=== PATIENT | female | born 2000 | race Caucasian/White ===

== ENCOUNTER 2019-08-18 19:26 | Emergency (ER) | payer SELFPAY | END 2019-08-18 22:17 | disposition left against medical advice (07) | LOC: ER 19:26 | DX: Z53.1 Procedure and treatment not carried out because of patient's decision for reasons of belief and group pressure (principal) ==

== ENCOUNTER 2019-12-21 13:32 | Emergency (ER) | payer OTHER ==
--- NOTE | 2019-12-21 13:46 | ER Document Report ---
ED Medical Screen (RME) - General Chief Complaint: Abdominal Pain Stated Complaint: ABDOMINAL PAIN Time Seen by Provider: 12/21/19 13:39 Mode of Arrival: Ambulatory Information source: Patient Notes: 19-year-old female presents to ED for complaint of nausea vomiting headache and dizziness. She is a lethargic. She states her primary care doctor sent her here because she started getting almost fainting when she tried to take a shower. She is 3 para 2. She does have a history of bipolar PTSD hyperemesis preeclampsia and growth abnormality (IGUR). Patient is alert oriented respirations regular nonlabored speaking in full sentences. She does walk with a even steady gait. I have greeted and performed a rapid initial assessment of this patient. A comprehensive ED assessment and evaluation of the patient, analysis of test results and completion of medical decision making process will be conducted by an additional ED providers. Physical Exam - Vital signs Vitals: Temp Pulse Resp BP Pulse Ox 98.0 F 75 18 141/68 H 97 12/21/19 13:36 12/21/19 13:36 12/21/19 13:36 12/21/19 13:36 12/21/19 13:36 Course - Vital Signs Vital signs: Temp Pulse Resp BP Pulse Ox 98.0 F 75 18 141/68 H 97 12/21/19 13:36 12/21/19 13:36 12/21/19 13:36 12/21/19 13:36 12/21/19 13:36
[2019-12-21 14:24] LABS: ABSOLUTE EOSINOPHILS # (AUTO) 0.1 10^3/uL (0.0-0.6); ABSOLUTE LYMPHOCYTES (AUTO) 2.9 10^3/uL (0.5-4.7); ABSOLUTE MONOCYTES (AUTO) 0.6 10^3/uL (0.1-1.4); ABSOLUTE NEUT (AUTO) 6.1 10^3/uL (1.7-8.2); APPEARANCE,URINE TURBID; BASOPHILS % (AUTO) 0.4 % (0-2); BILIRUBIN,URINE NEGATIVE (NEGATIVE); COLOR,URINE YELLOW; EOSINOPHILS % (AUTO) 0.7 % (0-6); GLUCOSE, URINE 50 mg/dL (NEGATIVE); HEMATOCRIT 36.8 % (36.0-47.0); HEMOGLOBIN 13.3 g/dL (12.0-15.5); KETONES,URINE 20 mg/dL (NEGATIVE); LEUKOCYTE ESTERASE,URINE NEGATIVE (NEGATIVE); LYMPHOCYTES % (AUTO) 29.8 % (13-45); MEAN CORPUSCULAR HEMOGLOBIN 32.1 pg (27.0-33.4); MEAN CORPUSCULAR HGB CONC 36.1 g/dL (32.0-36.0); MEAN CORPUSCULAR VOLUME 89 fl (80-97); MONOCYTES % (AUTO) 5.8 % (3-13); NITRITE,URINE NEGATIVE (NEGATIVE); PLATELET COUNT 276 10^3/uL (150-450); PROTEIN,URINE NEGATIVE (NEGATIVE); RED BLOOD COUNT 4.13 10^6/uL (3.72-5.28); RED CELL DISTRIBUTION WIDTH 12.8 % (11.5-14.0); SEGMENTED NEUTROPHILS % (AUTO) 63.3 % (42-78); TOTAL CELLS COUNTED % (AUTO) 100 %; URINE SPECIFIC GRAVITY 1.018; UROBILINOGEN,URINE NEGATIVE mg/dL (<2.0); WHITE BLOOD COUNT 9.7 10^3/uL (4.0-10.5)
[2019-12-21 14:37] LABS: ALBUMIN 4.5 g/dL (3.5-5.0); ALKALINE PHOSPHATASE 51 U/L (38-126); ANION GAP 7 (5-19); ASPARTATE AMINO TRANSFERASE 18 U/L (14-36); BILIRUBIN,DIRECT 0.2 mg/dL (0.0-0.4); BILIRUBIN,TOTAL 0.7 mg/dL (0.2-1.3); BLOOD UREA NITROGEN 9 mg/dL (7-20); CALCIUM 9.6 mg/dL (8.4-10.2); CARBON DIOXIDE 25 mmol/L (22-30); CHLORIDE 101 mmol/L (98-107); GLUCOSE 105 mg/dL (75-110); POTASSIUM 3.8 mmol/L (3.6-5.0); TOTAL PROTEIN 7.1 g/dL (6.3-8.2)
[2019-12-21 14:47] LABS: ADD MANUAL MICROSCOPIC YES
[2019-12-21 14:50] LABS: AMORPHOUS SEDIMENT,UR 3+; BACTERIA,URINE 1+ /HPF; WBC,URINE 0-1 /HPF
--- NOTE | 2019-12-21 15:31 | RADIOLOGY REPORT (SQ) ---
EXAM DESCRIPTION: U/S OB TRANSVAGINAL W/O DOP IMAGES COMPLETED DATE/TIME: 12/21/2019 3:21 pm REASON FOR STUDY: pelvic cramping 8 weeks nv COMPARISON: None. TECHNIQUE: Transvaginal static and realtime grayscale images acquired of the pelvis. Additional kassi cted spectral and color Doppler images recorded. All images stored on PACs. bHCG: Not available. CLINICAL DATES: 7 weeks 3 days. LIMITATIONS: None. FINDINGS: FETUS: Single Living intrauterine . ULTRASOUND EGA: 6 weeks 6 days. ULTRASOUND ANGIE: 08/09/2020. EFW: Not applicable less than 20 weeks. CRL: Visualized. FHR: 143 beats per minute. SURVEY: Too early to assess. AMNIOTIC FLUID: Adequate amount. PLACENTA: Not yet developed due to early gestation. SUBCHORIONIC BLEED: No. SIZE OF BLEED: Not applicable. UTERUS: No masses. No anomalies. CERVICAL LENGTH: 2.7 cm. Closed. RIGHT ADNEXA: Normal ovary with normal vascular flow. Simple right ovarian cyst is noted measuring 2.7 x 3.0 x 3.0 cm. No free fluid. LEFT ADNEXA: Ovary not identified due to poor acoustical window. No adnexal free fluid. No adnexal masses. FREE FLUID: None. OTHER: No other significant finding. IMPRESSION: LIVING INTRAUTERINE . EGA 6 WEEKS 6 DAYS. Trimester of : First trimester - 0 to 13 weeks. TECHNICAL DOCUMENTATION: JOB ID: [id number] 2010 [employer]- All Rights Reserved rev Reading location - IP/workstation name: [email or web address]
--- NOTE | 2019-12-21 17:20 | ER Document Report ---
ED General - General Chief Complaint: Abdominal Pain Stated Complaint: ABDOMINAL PAIN Time Seen by Provider: 12/21/19 13:39 Mode of Arrival: Ambulatory Information source: Patient Notes: Patient is a 19-year-old female presenting to the emergency department chief complaint of nausea and vomiting while . Patient is 3 para 2 patient says she is approximately 6 to 7 weeks . Patient reports a prior history of preeclampsia, MCA hyperemesis gravidarum and IUGR with prior pregnancies. Patient denies travel history trauma history or obvious sick contacts. Patient denies any bleeding/spotting. Patient states she was just seen at her primary care office and prescribed antiemetics but recommended to come to the emergency department for further evaluation and ultrasound. TRAVEL OUTSIDE OF THE [place] IN LAST 30 DAYS: No - HPI Onset: Last week Onset/Duration: Gradual, Intermittent Quality of pain: Achy Severity: Mild Associated symptoms: Nausea, Vomiting Exacerbated by: Denies Relieved by: Denies Similar symptoms previously: Yes Recently seen / treated by doctor: Yes - Related Data Allergies/Adverse Reactions: amoxicillin Allergy (Verified 12/21/19 16:56) latex Allergy (Verified 12/21/19 16:56) Past Medical History - General Information source: Patient - Social History Smoking Status: Current Every Day Smoker Cigarette use (# per day): Yes Chew tobacco use (# tins/day): No Smoking Education Provided: Yes Frequency of alcohol use: None Drug Abuse: Marijuana Lives with: Spouse/Significant other Family History: Reviewed & Not Pertinent Review of Systems - Review of Systems Constitutional: No symptoms reported EENT: No symptoms reported Cardiovascular: No symptoms reported Respiratory: No symptoms reported Gastrointestinal: See HPI Genitourinary: No symptoms reported Female Genitourinary: See HPI Musculoskeletal: No symptoms reported Skin: No symptoms reported Hematologic/Lymphatic: No symptoms reported Neurological/Psychological: No symptoms reported -: Yes All other systems reviewed and negative Physical Exam - Vital signs Vitals: Temp Pulse Resp BP Pulse Ox 98.0 F 75 18 141/68 H 97 12/21/19 13:36 12/21/19 13:36 12/21/19 13:36 12/21/19 13:36 12/21/19 13:36 - Notes Notes: PHYSICAL EXAMINATION: GENERAL: Well-appearing, well-nourished and in no acute distress. HEAD: Atraumatic, normocephalic. EYES: Pupils equal round and reactive to light, extraocular movements intact, sclera anicteric, conjunctiva are normal. ENT: nares patent, oropharynx clear without exudates. Moist mucous membranes. NECK: Normal range of motion, supple without lymphadenopathy, no appreciable JVD LUNGS: Lungs clear to auscultation bilaterally and equal. No wheezes rales or rhonchi. HEART: Regular rate and rhythm without murmurs ABDOMEN: Soft, nontender, normal bowel sounds. No guarding, no rebound. No masses appreciated. EXTREMITIES: Active full range of motion, no pitting or edema. No cyanosis. 2+ pulses x4 NEUROLOGICAL: No focal neurological deficits. Moves all extremities spontaneously and on command. SKIN: Warm, Dry, and intact. Normal turgor, no rashes or lesions noted. Course - Re-evaluation Re-evalutation: 12/21/19 17:19 Patient has been reevaluated several times while in emergency department. I did review the patient's laboratory and radiologic results with the patient she understands that per ultrasound she is approximately 6 weeks 6 days with a heart rate of 143 bpm. Patient states that she has been prescribed antiemetics at her primary care office prior to being instructed to come to the emergency department for evaluation. She is reassured by the ultrasound findings and will follow up with [facility] at her earliest convenience. Patient is stable for discharge home. - Vital Signs Vital signs: Temp Pulse Resp BP Pulse Ox 98.0 F 75 18 141/68 H 97 12/21/19 13:36 12/21/19 13:36 12/21/19 13:36 12/21/19 13:36 12/21/19 13:36 - Laboratory Result Diagrams: 12/21/19 13:50 12/21/19 13:50 Laboratory results interpreted by me: 12/21/19 12/21/19 12/21/19 13:50 13:50 13:50 MCHC 36.1 H Sodium 133.4 L Creatinine 0.49 L Beta HCG, Quant 38095.00 H Urine Glucose (UA) 50 H Urine Ketones 20 H - Diagnostic Test Radiology reviewed: Reports reviewed Discharge - Discharge Clinical Impression: Nausea and vomiting during Condition: Stable Disposition: HOME, SELF-CARE Additional Instructions: Recommend following up with your primary care provider and [facility] in the near future. Return to the emergency department for worsening symptoms.
[2019-12-21 17:26] VITALS: BP 126/64
== END 2019-12-21 17:28 | disposition home or self-care (01) ==
LOC: ER 13:32
DX: O21.9 Vomiting of pregnancy, unspecified (principal); O26.899 Other specified pregnancy related conditions, unspecified trimester; R82.71 Bacteriuria; R10.2 Pelvic and perineal pain; O99.330 Smoking (tobacco) complicating pregnancy, unspecified trimester; F17.210 Nicotine dependence, cigarettes, uncomplicated; O99.320 Drug use complicating pregnancy, unspecified trimester; F12.10 Cannabis abuse, uncomplicated; Z3A.00 Weeks of gestation of pregnancy not specified; Z87.59 Personal history of other complications of pregnancy, childbirth and the puerperium; Z88.0 Allergy status to penicillin; Z91.040 Latex allergy status
CPT/HCPCS: 36415; 76817; 80053; 81001; 83690; 84702; 85025; 87086; 99284